=== PATIENT | female | born 1950 | race Caucasian/White ===

== ENCOUNTER → 2017-05-04 | Outpatient (CLI) | payer MEDICARE, OTHER | END | disposition home or self-care (01) | LOC: RAD.S 10:29 | DX: Z12.31 Encounter for screening mammogram for malignant neoplasm of breast (principal); N63 Unspecified lump in breast ==

== ENCOUNTER → 2017-05-16 | Outpatient (CLI) | payer MEDICARE, OTHER | END | disposition home or self-care (01) | LOC: RAD.S 05-05 08:01 | DX: R92.8 Other abnormal and inconclusive findings on diagnostic imaging of breast (principal); N63 Unspecified lump in breast ==

== ENCOUNTER 2017-05-23 11:10 | Day surgery (SDC) | payer MEDICARE, OTHER ==
[~2017-05-23] VITALS: Ht 154.9 cm; Wt 91.0 kg
--- NOTE | ~2017-05-23 | CATH ---
Cardiac Diagnostic Report Demographics Patient Name MEL Talley Gender Female Date of 1950 Age 67 year(s) Patient Number [id number] Date of Study 05/23/2017 Visit Number [id number] Room Number Corporate ID Ht 154.94 cm Wt 93.44 kg Accession Number [id number] BSA 1.91 m kg/m Referring Clive LUNA Primary Physician Physician Cb Rowan MD Performing Clive LUNA Secondary Physician Physician Cb Diagnostic Clive LUNA Assisting Physician Physician Cb Interventional Clive LUNA Physician Dehydrogenation Operator Physician Cb Findings and Conclusions Diagnostic Findings and Conclusion 1. Non-obstructive CAD Diagnostic Recommendations 1. Medical management Procedure Description The patient was brought to the diagnostic cardiac catheterization laboratory in the fasting, non-sedated state. Informed consent was obtained in the written and verbal form after the risks and benefits were explained. The patient had no further questions and agreed to proceed. The planned puncture-incision site(s) were shaved and prepped with ChloraPrep and draped in the usual sterile manner. Conscious sedation, supplemental oxygen, and pain control medications were delivered by a registered nurse under physician guidance. Surface ECG rhythm, blood pressure measurement, and pulse oximetry were monitored throughout the procedure. Arterial access. The right radial access site was infiltrated with lidocaine. The vessel was entered with the Seldinger technique. A 6F sheath was advanced into the vessel and used for catheter placement. Radial cocktail was administered per protocol. Selective left coronary angiography. A TIG catheter was advanced into the left coronary vessel ostium under Fluoroscopic guidance. Contrast was injected by hand. Images were obtained in multiple projections. Selective right coronary angiography. A TIG catheter was advanced into the right coronary vessel ostium under fluoroscopic guidance. Contrast was injected by hand. Images were obtained in multiple projections. Left heart catheterization. A pigtail catheter was advanced across the aortic valve to the left ventricle under fluoroscopic guidance. Resting hemodynamics were obtained. Arterial artery hemostasis was achieved with a TR band. The patient was transferred to Outpatient recovery via cart accompanied by a nurse. The patient left the laboratory in stable condition. Diagnostic Cath Status: Elective Procedure Procedure Type Diagnostic procedure:Angiography:, Coronary Angios w/[facility] Indications: Chest pain, Abnormal nuclear perfusion study, Hyperlipidemia, Hypertension, Diabetes, Tobacco use-current and Obesity. The procedure was explained in detail to the patient. Risks, complications and alternative treatments were reviewed. Written consent was obtained. Medications Reviewed with Patient prior to Procedure. Complications: No Complication. Angiographic Findings Dominance: Right Cardiac Arteries and Lesion Findings LMCA: Normal (0% Stenosis). LAD: Abnormal. Lesion on Prox LAD: 30% stenosis . Lesion on Mid LAD: 20% stenosis . LCx: Abnormal. Lesion on Dist CX: 50% stenosis . Lesion on 1st Ob Brandi: Proximal subsection.50% stenosis . Lesion on 2nd Ob Brandi: Proximal subsection.60% stenosis . RCA: Abnormal. Lesion on Mid RCA: 50% stenosis . Coronary Tree Procedure Data Procedure Date Date: 05/23/2017Start: 01:02 End: : Entry Locations - Percutaneous access was performed through the Right Radial artery (Primary location). A 6 Fr sheath was inserted. Hemostasis was successfully obtained using a TR band. Procedure Medications Order and Administration + + +-------+-------+ !Time !Medication !Dosage !Route ! + + +-------+-------+ !05/23/2017 !Versed !2 mg !I.V. ! !01:05 ! ! ! ! + + +-------+-------+ !05/23/2017 !Fentanyl !50 mcg !I.V. ! !01:05 ! ! ! ! + + +-------+-------+ !05/23/2017 !Sodium Chloride !10 ml !I.V. ! !01:05 ! ! ! ! + + +-------+-------+ !05/23/2017 !Oxygen !2 l/min!NC ! !01:07 ! ! ! ! + + +-------+-------+ !05/23/2017 !SF Radial Cocktail: 200mcg Nitro, 2.5 mg ! !I.A. ! !01:09 !Verapamil, 5000u Heparin ! ! ! + + +-------+-------+ Devices Used - A6F TIG CATHETERwas used for:Coronary Angios. - ACATH 6FR PIG 145 110CM CATHETERwas used for:LV Pressures. Contrast Material - Isovue 50824 ml Fluoroscopy Time: Diagnostic: 1:48 minutes. Total: 1:48 minutes. Fluoroscopy Dose: Diagnostic: 455 mGy. Total: 455 mGy. Estimated Blood Loss: 9 ml. Medical History Performed Procedures and Imaging Results - Stress testing with SPECT MPIwas performed on 05/09/2017. Results were: Positive. Risk/Extent of ischemia was: Intermediate risk. Allergies - Morphine:Reaction - Skin->itching. - Sulfa:Reaction - Skin->swelling. Risk Factors The patient risk factors include:obesity, hypertension, insulin-treated diabetes mellitus, chronic lung disease, last creatinine: 1.1 mg/dl, creatinine clearance: 72.2 ml/min, dyslipidemia and Current/Recent(w/in 1 year) tobacco use. Admission Data Admission Date: 05/23/2017 Admission Time: 11:10 Insurance Payors: Medicare. Clinical Evaluation Leading to Procedure - The patient's CAD presentation was assessed as: Unstable angina. - The patient's anginal syndrome during the past two weeks was assessed as: Class III according to the [employer] Cardiovascular Society Classification System (CCS). Anti-anginal medications were prescribed during the past two weeks. The medications are: Beta Blockers and Long Acting Nitrates. Hemodynamics Condition: Rest O2 Consumption: Estimated: 178.20Heart Rate: 72 bpm Pressures (mmHg) +-----+ + !Site !Pressure ! +-----+ + !AO !87/44 (60) ! +-----+ + !LV !97/-1 ,5 ! +-----+ + !AO !102/50 (72) ! +-----+ + !LV !101/-1 ,6 ! +-----+ + Valve Gradients and Areas + +---------+---------+---------+ +---------+ + !Valve !Peak !Mean !Area !Index !Flow !Source ! + +---------+---------+---------+ +---------+ + !Aortic !0 !0 ! ! ! ! ! + +---------+---------+---------+ +---------+ + !Aortic !0 !0 ! ! ! ! ! + +---------+---------+---------+ +---------+ + Shunts Oxygen Values O2 Consumption 178.2 Signatures
== END 2017-05-23 17:12 | disposition home or self-care (01) ==
LOC: SSS 11:10
DX: I25.110 Atherosclerotic heart disease of native coronary artery with unstable angina pectoris (principal); E66.9 Obesity, unspecified; I10 Essential (primary) hypertension; E11.9 Type 2 diabetes mellitus without complications; Z88.2 Allergy status to sulfonamides; Z88.5 Allergy status to narcotic agent; Z87.891 Personal history of nicotine dependence; Z90.49 Acquired absence of other specified parts of digestive tract; Z87.442 Personal history of urinary calculi; Z79.82 Long term (current) use of aspirin; Z79.899 Other long term (current) drug therapy